=== PATIENT | female | born 1995 | race American Indian/Alaskan Native ===

== ENCOUNTER 2018-11-26 17:26 | Emergency (ER) | payer SELFPAY ==
[2018-11-26 17:35] VITALS: BP 114/81
--- NOTE | 2018-11-26 17:45 | Event Note ---
ED Screening Note Date of service: 11/26/18 Time: 17:42 ED Screening Note: This is a 23 y.o. F. that presents to the ER with an abscess to left ankle. Patient noticed a small bump 5 days ago that progressively last night. This initial assessment/diagnostic orders/clinical plan/treatment(s) is/are subject to change based on patients health status, clinical progression and re- assessment by fellow clinical providers in the ED. Further treatment and workup at subsequent clinical providers discretion. Patient/guardian urged not to elope from the ED as their condition may be serious if not clinically assessed and managed. Initial orders include:
[2018-11-26] MEDS ORDERED: TETANUS,DIPH,PERTUSS(ACELL) VACCINE 0.5 ML SYRINGE IM ONE (19:10)
--- NOTE | 2018-11-26 19:14 | Emergency Department Report ---
- General Chief complaint: Extremity Injury, Lower Stated complaint: LT ANKLE PAIN/POSSIBLE INFECTION Time Seen by Provider: 11/26/18 17:41 Source: patient Mode of arrival: Ambulatory Limitations: No Limitations - History of Present Illness Initial comments: Patient is a 23-year-old female who presents to the emergency room with complaints of a "possible infection" on her left ankle that began 4 days ago. She states 4 days ago she had an insect bite to the left ankle which has been itching and she has constantly been scratching. pt states that she then began to notice that the bump was increasing in size. She denies any fever, drainage, chills, nausea, vomiting, any other symptoms. Patient denies any past medical history or allergies to medications. She is unsure of her last tetanus immunization. She states she is currently on her menstrual cycle. - Related Data Previous Rx's Medication Instructions Recorded Last Taken Type cephALEXin [Keflex] 500 mg PO BID 7 Days #14 capsule 11/26/18 Unknown Rx Allergies Allergy/AdvReac Type Severity Reaction Status Date / Time No Known Allergies Allergy Unverified 11/26/18 17:31 Abscess Boil HPI - HPI Chief Complaint: Extremity Injury, Lower Stated Complaint: LT ANKLE PAIN/POSSIBLE INFECTION Time Seen by Provider: 11/26/18 17:41 Home Medications: Previous Rx's Medication Instructions Recorded Last Taken Type cephALEXin [Keflex] 500 mg PO BID 7 Days #14 capsule 11/26/18 Unknown Rx Allergies/Adverse Reactions: Allergies Allergy/AdvReac Type Severity Reaction Status Date / Time No Known Allergies Allergy Unverified 11/26/18 17:31 ED Review of Systems ROS: Stated complaint: LT ANKLE PAIN/POSSIBLE INFECTION Other details as noted in HPI Comment: All other systems reviewed and negative ED Past Medical Hx - Past Medical History Previous Medical History?: No - Surgical History Past Surgical History?: Yes Additional Surgical History: '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 as a " - Social History Smoking Status: Never Smoker Substance Use Type: None - Medications Home Medications: Home Medications Medication Instructions Recorded Confirmed Last Taken Type cephALEXin [Keflex] 500 mg PO BID 7 Days #14 capsule 11/26/18 Unknown Rx ED Physical Exam - General Limitations: No Limitations General appearance: alert, in no apparent distress - Head Head exam: Present: atraumatic, normocephalic - Eye Eye exam: Present: normal appearance - ENT ENT exam: Present: mucous membranes moist - Neurological Exam Neurological exam: Present: alert, oriented X3 - Psychiatric Psychiatric exam: Present: normal affect, normal mood - Skin Skin exam: Present: warm, dry, other (fluid filled vesicle to the left medial ankle with small amount of surrounding erythema, 2+ pulses, sensation intact, no drainage) ED Course Vital Signs 11/26/18 11/26/18 17:32 19:35 Temperature 98.1 F Pulse Rate 91 H 72 Respiratory 18 16 Rate Blood Pressure 114/81 O2 Sat by Pulse 100 100 Oximetry - I & D Left Medial Ankle Type of Procedure: Simple Site: left medial ankle Blade Size: 25 gauge needle I & D Procedure: betadine prep, sterile drapes applied, sterile dressing applied Progress: area prepped with betadine, 25 G needle used, serous drainage expressed, pt tolerated well, no bleeding, sterile dressing applied ED Medical Decision Making - Medical Decision Making Patient is a 23-year-old female who presents to the emergency room with complaints of a "possible infection" on her left ankle that began 4 days ago. She states 4 days ago she had an insect bite to the left ankle which has been itching and she has constantly been scratching. pt states that she then began to notice that the bump was increasing in size. She denies any fever, drainage, chills, nausea, vomiting, any other symptoms. Patient denies any past medical history or allergies to medications. She is unsure of her last tetanus immunization. She states she is currently on her menstrual cycle. vitals are normal. on exam: fluid filled vesicle to the left medial ankle with small amount of surrounding erythema, 2+ pulses, sensation intact, no drainage, needle aspiration performed per procedure note with serous fluid expressed. pt given tetanus immunization. given prescription for keflex. advised pt to please take medication as prescribed. Please keep area clean and dry and covered. No hot tub, pool, soaking in water. Wash with soap and monitor and immediately dry. follow up with a primary care doctor in the next 2-3 days for reevaluation. Return to the emergency room for any new or worsening symptoms. Critical care attestation.: If time is entered above; I have spent that time in minutes in the direct care of this critically ill patient, excluding procedure time. ED Disposition Clinical Impression: Blister Cellulitis Qualifiers: Site of cellulitis: extremity Site of cellulitis of extremity: lower extremity Laterality: left Qualified Code(s): L03.116 - Cellulitis of left lower limb Disposition: TO HOME OR SELFCARE Is pt being admited?: No Does the pt Need Aspirin: No Condition: Stable Instructions: Cellulitis (ED), Insect Bite or Sting (ED), Diphtheria Tetanus and Pertussis Vaccination (ED) Additional Instructions: Please take medication as prescribed. Please keep area clean and dry and covered. No hot tub, pool, soaking in water. Wash with soap and monitor and immediately dry. follow up with a primary care doctor in the next 2-3 days for reevaluation. Return to the emergency room for any new or worsening symptoms. Prescriptions: cephALEXin [Keflex] 500 mg PO BID 7 Days #14 capsule Referrals: [facility] [Provider Group] - 3-5 Days Time of Disposition: 19:15 Print Language: [place]
== END 2018-11-26 19:35 | disposition home or self-care (01) ==
LOC: ED 17:26
DX: L03.116 Cellulitis of left lower limb (principal); Z79.899 Other long term (current) drug therapy
CPT/HCPCS: 90471; 90715